=== PATIENT | male | born 1990 | race Hispanic/Latino ===

== ENCOUNTER 2016-09-01 21:16 | Emergency (ER) | payer OTHER ==
[2016-09-01 21:19] VITALS: BP 133/89; PULSE 94; RESP 18; O2SAT 96
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
[2016-09-02 01:03] VITALS: BP 132/84; PULSE 88; RESP 18; O2SAT 99
== END 2016-09-02 01:08 | disposition home or self-care (01) ==
LOC: SED 21:16
DX: S01.511A Laceration without foreign body of lip, initial encounter (principal); S61.217A Laceration without foreign body of left little finger without damage to nail, initial encounter; X99.8XXA Assault by other sharp object, initial encounter; Y93.89 Activity, other specified; Y92.9 Unspecified place or not applicable; Y99.8 Other external cause status

== ENCOUNTER 2016-09-09 20:01 | Emergency (ER) | payer OTHER ==
[~2016-09-09] VITALS: Ht 175.3 cm; Wt 77.3 kg
[2016-09-09 20:16] VITALS: BP 106/70; PULSE 74; RESP 16; O2SAT 99
[2016-09-09 21:24] VITALS: BP 110/72; PULSE 70; RESP 16; O2SAT 98
== END 2016-09-09 21:26 | disposition home or self-care (01) ==
LOC: SED 20:01
DX: Z48.02 Encounter for removal of sutures (principal)